=== PATIENT | female | born 1965 | race Caucasian/White ===

== ENCOUNTER → 2024-06-08 | Day surgery (SDC) | payer BC, OTHER ==
[~2024-06-08] MED LIST: GLUCAGON FOR INJ 1 MG VIAL ONE; HYOSCYAMINE SULFATE 0.5 MG/ML INJ ONE; LIDOCAINE HCL 2% LOCAL INJ 5 ML SDV VIAL INJ ONE; MIDAZOLAM HCL 2 MG/2 ML VIAL ONE; MULTI-VITAMIN1 EACH PO; PROPOFOL IV EMULSION 10 MG/ML 20 ML VIAL ONE; XANAX0.5 MG PO; ZOLOFT100 MG PO
[2024-06-08] MEDS: LACTATED RINGER'S 1,000 ML ONE (07:02)
[2024-06-08 09:36] VITALS: TEMP 97.1
[2024-06-08 10:00] VITALS: BP 118/74; PULSE 84; RESP 16; O2SAT 97
[2024-06-08 13:26] LABS: CDIFF AG QUIK CHEK NEGATIVE (NEGATIVE); CDIFF TOX QUIK CHEK NEGATIVE (NEGATIVE)
[2024-06-09 07:12] LABS: C-REACTIVE PROTEIN <1 mg/L (0-10)
[2024-06-15 09:12] LABS: ENDOMYSIAL ANTIBODIES, IGA Negative (Negative)
[2024-06-15 18:35] LABS: IMMUNOGLOBULIN A 352 mg/dL (87-352); TISSUE TRANSGLUTAMINASE IGA AB <2 U/mL (0-3)
== END | disposition home or self-care (01) ==
LOC: OR 06:45
PROVIDERS: ATTEND Internal Medicine Gastroenterology
DX: K52.9 Noninfective gastroenteritis and colitis, unspecified (principal); D12.4 Benign neoplasm of descending colon; D12.8 Benign neoplasm of rectum; K62.89 Other specified diseases of anus and rectum; K64.8 Other hemorrhoids; K28.9 Gastrojejunal ulcer, unspecified as acute or chronic, without hemorrhage or perforation; I10 Essential (primary) hypertension; E03.9 Hypothyroidism, unspecified; F41.9 Anxiety disorder, unspecified; Z88.6 Allergy status to analgesic agent; Z01.810 Encounter for preprocedural cardiovascular examination; Z79.899 Other long term (current) drug therapy; Z87.891 Personal history of nicotine dependence
CPT/HCPCS: 45380; 45385; 82784; 83516; 83630; 83993; 86140; 86256; 87045; 87177; 87324; 87328; 87449; 93005; J1610; J1980; J2003; J2250; J2704; J7121; 45378